=== PATIENT | female | born 1995 | race Caucasian/White ===

== ENCOUNTER → 2019-08-11 | Outpatient (CLI) | payer OTHER ==
[~2019-08-11] MED LIST: A.E.R PADS1 JAR TOP; APAP500 PO; DERMOPLAST SPRA56 ML; HYDROCORTISONE30 G9 RECTAL; IBUPROFEN 800800 M1 PO; LANOLIN56 GM
[2019-08-11 14:38] LABS: % SATURATION 46 % (20-39); IRON 147 ug/dL (50-170); TIBC 317 ug/dL (250-450)
[2019-08-11 14:41] LABS: ALBUMIN 4.3 g/dL (3.4-5.0); CALCIUM 9.1 mg/dL (8.5-10.1); CREATININE 0.6 mg/dL (0.6-1.0); POTASSIUM 3.7 mmol/L (3.5-5.1); TOTAL BILIRUBIN 0.7 mg/dL (<0.1-1.0); TOTAL PROTEIN 7.1 g/dL (6.4-8.2)
[2019-08-11 15:08] LABS: TSH 1.441 uIU/mL (0.358-3.740)
[2019-08-11 15:43] LABS: FOLIC ACID 36.4 ng/mL (8.6-58.9)
--- NOTE | 2019-08-11 17:14 | 2DMMODE ---
[facility] [place] [address] 2 D/M-MODE ECHOCARDIOGRAM Name: ROSY QUIÑONES Room #: [facility]#: [id number] Admission: 08/11/19 Attend Phys: Po Reyes, Discharge: Date of : 89 Report #: [id number] THIS REPORT FOR: //name// APPROVED REPORT Study performed: 08/11/2019 14:12:49 EXAM: Comprehensive 2D, Doppler, and color-flow Echocardiogram Patient Location: Out-Patient Status: routine BSA: 1.60 HR: 63 bpm Rhythm: NSR Other Information Study Quality: Good Indications Murmur 2D Dimensions RVDd: 31.77 mm IVSd: 8.37 (7-11mm) LVOT Diam: 20.17 (18-24mm) LVDd: 46.43 mm PWd: 8.42 (7-11mm) Ascending Ao: 29.24 (22-36mm) LVDs: 32.66 (25-40mm) Aortic Root: 27.54 mm Volumes Left Atrial Volume (Systole) Single Plane 4CH: 31.80 mL Single Plane 2CH: 25.54 mL LA ESV Index: 19.00 mL/m2 Aortic Valve AoV Peak Spenser.: 1.31 m/s AO Peak Gr.: 6.86 mmHg LVOT Max P.63 mmHg LVOT Max V: 1.19 m/s ALBINO Vmax: 2.89 cm2 Mitral Valve E/A Ratio: 2.4 MV Decel. Time: 214.88 ms MV E Max Spenser.: 0.99 m/s [facility] [address] [address] 2 D/M-MODE ECHOCARDIOGRAM Name: ROSY QUIÑONES Room #: [facility]#: [id number] Admission: 08/11/19 Attend Phys: Po Reyes, Discharge: Date of : 89 Report #: [id number] MV A Spenser.: 0.41 m/s MV PHT: 62.32 ms IVRT: 59.98 ms Pulmonary Valve PV Peak Spenser.: 0.83 m/s PV Peak Gr.: 2.73 mmHg Pulmonary Vein P Vein S: 0.44 m/s P Vein D: 0.76 m/s P Vein S/D Ratio: 0.58 Tricuspid Valve TR Peak Spenser.: 2.08 m/s RAP Estimate: 5.00 mmHg TR Peak Gr.: 17.30 mmHg PA Pressure: 22.00 mmHg Left Ventricle The left ventricle is normal size. There is normal LV segmental wall motion. There is normal left ventricular wall thickness. Left ventricular systolic function is normal. LVEF is 55-60%. The left ventricular diastolic function is normal. Right Ventricle The right ventricle is normal size. The right ventricular systolic function is normal. Atria The left atrium size is normal. No PFO noted with color doppler. The right atrium size is normal. Aortic Valve The aortic valve is normal in structure. No aortic regurgitation is present. There is no aortic valvular stenosis. Mitral Valve The mitral valve is normal in structure. No mitral regurgitation. Tricuspid Valve The tricuspid valve is normal in structure. Mild tricuspid regurgitation. Estimated PAP is 20-25mmHg. Pulmonic Valve The pulmonary valve is normal in structure. Trace to mild pulmonic regurgitation. [facility] [place] [address] 2 D/M-MODE ECHOCARDIOGRAM Name: ROSY QUIÑONES Room #: [facility]#: [id number] Admission: 08/11/19 Attend Phys: Po Reyes, Discharge: Date of : 89 Report #: [id number] Great Vessels The aortic root is normal in size. The ascending aorta is normal in size. IVC is normal in size and collapses >50% with inspiration. Abnormal flow seen on limited views in the region of the aortopulmonary window. Peak systolic velocity of 5.0m/s and diastolic velocity of 3.2m/s. Continuous diatolic flow. Consider patent ductus arteriosus Pericardium There is no pericardial effusion. <Conclusion> Left ventricular systolic function is normal. There is normal LV segmental wall motion. LVEF is 55-60%. Normal diastolic function The aortic valve is normal in structure. No aortic regurgitation or stenosis The mitral valve is normal in structure. No mitral regurgitation. Mild tricuspid regurgitation. Estimated pulmonary artery pressure of 20-25mmHg. There is no pericardial effusion. Abnormal flow seen on limited views in the region of the aortopulmonary window. Peak systolic velocity of 5.0m/s and diastolic velocity of 3.2m/s, continuous diatolic flow. Consider patent ductus arteriosus Additional or alternative imaging recommended. <ELECTRONICALLY SIGNED> By: Tk Almanzar MD, FACC 08/11/191713 13 13 Tk Almanzar MD, FACC /INF
== END ==
LOC: CV 09:59
PROVIDERS: Psychiatry & Neurology Neurology
DX: G43.019 Migraine without aura, intractable, without status migrainosus (principal); Z87.820 Personal history of traumatic brain injury